=== PATIENT | male | born 1995 | race Asian ===

== ENCOUNTER 2016-08-01 16:09 | Outpatient (CLI) | payer OTHER ==
[~2016-08-01 16:09] MED LIST: ALBUTEROL0.083 % IN; FLUT0.05 NAS; LORA10SY XX; PHENOBARB20 MG/5 ML XX; POLY3350; RANI75SY3 PO; SENSI CARE EX
== END 2016-08-01 16:13 | disposition short-term general hospital (02) ==
LOC: AMB 16:09
DX: G40.89 Other seizures (principal)
CPT/HCPCS: A0425; A0427

== ENCOUNTER 2016-08-01 16:23 | Inpatient (IN) | payer OTHER ==
[~2016-08-01] VITALS: Ht 142.2 cm; Wt 32.9 kg
[2016-08-01 16:30] VITALS: BP 121/73; TEMP 99.7
[2016-08-01 17:00] LABS: PLATELET COUNT 469 K/uL (142-355)
[2016-08-01 17:07] LABS: POTASSIUM 3.7 mmol/L (3.6-5.2); SODIUM 133 mmol/L (136-145)
[2016-08-01 21:14] VITALS: BP 121/73; TEMP 98.2
[2016-08-01 23:25] VITALS: BP 121/73; TEMP 98.7; Ht 142.2 cm; Wt 32.9 kg
[2016-08-02] VITALS (12 sets, daily range): BP systolic 97–126; BP diastolic 58–95; TEMP 97.6–98.6
[2016-08-02 07:36] LABS: PLATELET COUNT 365 K/uL (142-355)
[2016-08-02 07:40] LABS: SODIUM 135 mmol/L (136-145)
[2016-08-03] VITALS (19 sets, daily range): BP systolic 87–125; BP diastolic 44–86; TEMP 98–98.5
[2016-08-03 05:17] LABS: PLATELET COUNT 358 K/uL (142-355)
[2016-08-03 05:36] LABS: POTASSIUM 2.9 mmol/L (3.6-5.2); SODIUM 140 mmol/L (136-145)
[2016-08-04] VITALS (15 sets, daily range): BP systolic 97–132; BP diastolic 40–89; TEMP 97.8–98.5
[2016-08-04 06:53] LABS: PLATELET COUNT 352 K/uL (142-355)
[2016-08-04 08:08] LABS: POTASSIUM 5.5 mmol/L (3.6-5.2); SODIUM 135 mmol/L (136-145)
[2016-08-05] VITALS (13 sets, daily range): BP systolic 86–119; BP diastolic 41–87; TEMP 97.9–99.3
[2016-08-05 06:41] LABS: PLATELET COUNT 485 K/uL (142-355)
[2016-08-05 07:07] LABS: POTASSIUM 3.6 mmol/L (3.6-5.2); SODIUM 132 mmol/L (136-145)
[2016-08-06 00:30] VITALS: BP 117/64; TEMP 98.1
[2016-08-06 04:00] VITALS: BP 119/71; TEMP 97.9
[2016-08-06 06:27] LABS: PLATELET COUNT 402 K/uL (142-355)
[2016-08-06 06:56] LABS: POTASSIUM 3.5 mmol/L (3.6-5.2); SODIUM 136 mmol/L (136-145)
[2016-08-06 12:00] VITALS: BP 87/32; TEMP 97.8
[2016-08-06 16:00] VITALS: BP 107/57; TEMP 98.7
[2016-08-06 20:00] VITALS: BP 128/93; TEMP 99.3
[2016-08-07] VITALS: BP 124/81; TEMP 98.8
[2016-08-07 04:00] VITALS: BP 116/80; TEMP 98
[2016-08-07 04:49] LABS: PLATELET COUNT 419 K/uL (142-355)
[2016-08-07 04:59] LABS: SODIUM 135 mmol/L (136-145)
[2016-08-07 08:00] VITALS: BP 113/58; TEMP 98
[2016-08-07 11:57] VITALS: BP 92/41; TEMP 97.6
[2016-08-07 16:19] VITALS: BP 90/43; TEMP 98.1
== END 2016-08-07 18:45 | disposition home or self-care (01) | DRG 100 ==
LOC: ED 16:23 → MED/SURG 19:45 → ED 19:45 → MED/SURG 19:45 → ED 08-02 19:45 → ICU 08-02 19:45 → MED/SURG 08-02 19:49 → ICU 08-02 19:49 → MED/SURG 08-04 20:31 → ICU 08-04 20:31 → MED/SURG 08-07 18:45
PROVIDERS: Emergency Medicine; ADMIT Family Medicine
PROC: 0DB68ZX Excision of Stomach, Via Natural or Artificial Opening Endoscopic, Diagnostic (ICD-10-PCS; principal; 2016-08-05)
DX: G40.802 Other epilepsy, not intractable, without status epilepticus (principal); J18.8 Other pneumonia, unspecified organism; K92.2 Gastrointestinal hemorrhage, unspecified; N39.0 Urinary tract infection, site not specified; E46 Unspecified protein-calorie malnutrition; G91.8 Other hydrocephalus; K29.50 Unspecified chronic gastritis without bleeding; K44.9 Diaphragmatic hernia without obstruction or gangrene; G80.8 Other cerebral palsy; K59.09 Other constipation; R09.02 Hypoxemia; E86.0 Dehydration; L89.309 Pressure ulcer of unspecified buttock, unspecified stage
CPT/HCPCS: 36415; 36416; 80048; 80053; 80184; 81000; 82271; 82272; 83735; 83986; 84100; 85014; 85018; 85027; 86140; 87040; 87077; 87088; 87185; 87186; 87205; 87804; 93005; 94640; 94664; 94668; 94760; 96365; 96366; 96367; 96374; 99284; J0744; J1650; J2060; J2270; J2543; J2704; J3475; J3490

== ENCOUNTER 2017-03-03 16:28 | Inpatient (IN) | payer OTHER ==
[2017-03-03] VITALS (9 sets, daily range): BP systolic 76–129; BP diastolic 37–76; TEMP 97.3–97.5; Ht 137.2 cm; Wt 30.1 kg
[~2017-03-03] VITALS: Ht 137.2 cm; Wt 30.1 kg
[2017-03-03 16:58] LABS: PLATELET COUNT 186 K/uL (142-355)
[2017-03-03 17:06] LABS: POTASSIUM 4.3 mmol/L (3.6-5.2); SODIUM 133 mmol/L (136-145)
[2017-03-03] MEDS ORDERED: ZYRTEC CHIL5 MG/5 ML PO (21:26)
[2017-03-04] VITALS: BP 105/64
[2017-03-04 04:00] VITALS: BP 116/58
[2017-03-04 05:30] LABS: PLATELET COUNT 139 K/uL (142-355)
[2017-03-04 05:44] LABS: POTASSIUM 4.5 mmol/L (3.6-5.2); SODIUM 135 mmol/L (136-145)
[2017-03-04 08:00] VITALS: BP 92/43; TEMP 97.3
[2017-03-04 12:00] VITALS: BP 107/73; TEMP 97.6
[2017-03-04 16:00] VITALS: BP 103/66; TEMP 97.6
[2017-03-04 20:20] VITALS: BP 101/64; TEMP 97.4
[2017-03-05] VITALS: BP 104/64; TEMP 98.1
[2017-03-05 04:00] VITALS: BP 104/55; TEMP 98.7
[2017-03-05 06:27] LABS: PLATELET COUNT 150 K/uL (142-355)
[2017-03-05 08:00] VITALS: BP 100/65; TEMP 97.1
[2017-03-05 12:00] VITALS: BP 102/64; TEMP 97.6
[2017-03-05 16:00] VITALS: BP 100/62; TEMP 97.8
[2017-03-05 20:00] VITALS: BP 100/64; TEMP 97.9
[2017-03-06] VITALS: BP 124/81; TEMP 97.6
[2017-03-06 04:00] VITALS: BP 108/70; TEMP 97.5
[2017-03-06 04:26] LABS: PLATELET COUNT 166 K/uL (142-355)
[2017-03-06 04:34] LABS: POTASSIUM 3.9 mmol/L (3.6-5.2); SODIUM 138 mmol/L (136-145)
[2017-03-06 08:00] VITALS: BP 113/68; TEMP 97.5
[2017-03-06 12:00] VITALS: BP 99/65; TEMP 97.3
[2017-03-06 16:00] VITALS: BP 127/82; TEMP 97.2
[2017-03-06 20:00] VITALS: BP 119/78; TEMP 97.6
[2017-03-07] VITALS (7 sets, daily range): BP systolic 82–146; BP diastolic 61–109; TEMP 97.4–98.8
[2017-03-07 08:45] LABS: PLATELET COUNT 210 K/uL (142-355)
[2017-03-07 09:03] LABS: POTASSIUM 3.9 mmol/L (3.6-5.2); SODIUM 134 mmol/L (136-145)
[2017-03-08 04:00] VITALS: BP 96/48; TEMP 98.4
[2017-03-08 05:42] LABS: PLATELET COUNT 193 K/uL (142-355)
[2017-03-08 05:57] LABS: POTASSIUM 4.2 mmol/L (3.6-5.2); SODIUM 135 mmol/L (136-145)
[2017-03-08 08:00] VITALS: BP 98/53; TEMP 97.3
[2017-03-08 12:00] VITALS: BP 104/58; TEMP 98.1
[2017-03-08 16:00] VITALS: BP 92/58; TEMP 97.5
[2017-03-08 20:20] VITALS: BP 100/63; TEMP 98.4
[2017-03-09] VITALS: BP 122/70; TEMP 98.2
[2017-03-09 04:00] VITALS: BP 100/54; TEMP 99
[2017-03-09 05:50] LABS: PLATELET COUNT 189 K/uL (142-355)
[2017-03-09 05:52] LABS: SODIUM 135 mmol/L (136-145)
[2017-03-09 08:00] VITALS: BP 87/51; TEMP 99.4
[2017-03-09 12:00] VITALS: BP 97/49; TEMP 98.6
[2017-03-09 16:00] VITALS: BP 100/50; TEMP 98
[2017-03-09 20:00] VITALS: BP 93/50; TEMP 99.6
[2017-03-10] VITALS: BP 106/55; TEMP 99.3
[2017-03-10 04:00] VITALS: BP 131/96; TEMP 99
[2017-03-10 05:23] LABS: PLATELET COUNT 223 K/uL (142-355)
[2017-03-10 05:34] LABS: POTASSIUM 3.9 mmol/L (3.6-5.2); SODIUM 135 mmol/L (136-145)
[2017-03-10 08:00] VITALS: BP 100/72; TEMP 98.9
[2017-03-10 12:00] VITALS: BP 124/70; TEMP 97.4
[2017-03-10 16:00] VITALS: BP 91/55; TEMP 99.7
[2017-03-10 20:00] VITALS: BP 96/60; TEMP 98.3
[2017-03-11] VITALS: BP 92/53; TEMP 99.1
[2017-03-11 04:00] VITALS: BP 88/44; TEMP 99.3
[2017-03-11 06:15] LABS: PLATELET COUNT 207 K/uL (142-355)
[2017-03-11 06:43] LABS: POTASSIUM 4.2 mmol/L (3.6-5.2); SODIUM 134 mmol/L (136-145)
[2017-03-11 08:00] VITALS: BP 83/40; TEMP 98.6
[2017-03-11 12:00] VITALS: BP 90/44; TEMP 99.3
[2017-03-11 16:00] VITALS: BP 92/40; TEMP 99
== END 2017-03-11 18:00 | DRG 194 ==
LOC: ED 16:28 → MED/SURG 21:10
PROVIDERS: Internal Medicine; ADMIT Family Medicine
DX: J18.1 Lobar pneumonia, unspecified organism (principal); G40.802 Other epilepsy, not intractable, without status epilepticus; G40.89 Other seizures; E46 Unspecified protein-calorie malnutrition; Z68.1 Body mass index [BMI] 19.9 or less, adult; R05 Cough; Y07.9 Unspecified perpetrator of maltreatment and neglect; G80.8 Other cerebral palsy; R74.8 Abnormal levels of other serum enzymes; E86.0 Dehydration; N39.498 Other specified urinary incontinence; J20.9 Acute bronchitis, unspecified
CPT/HCPCS: 36415; 36600; 80053; 80184; 81000; 82550; 82805; 83605; 83735; 83880; 84134; 85027; 94640; 94664; 94668; 94760; 96361; 96365; 96372; 99284; J0696; J1100; J1650; J1940; J2060; J2405; J3411